=== PATIENT | male | born 1955 | race Caucasian/White ===

== ENCOUNTER 2023-12-04 14:59 | Outpatient (RCR) | payer MEDICARE, SELFPAY | END 2023-12-04 23:59 | disposition home or self-care (01) | LOC: RPT 14:59 | PROVIDERS: FAMILY PHYSICIAN Family Medicine | DX: Z47.89 Encounter for other orthopedic aftercare (principal); S86.011D Strain of right Achilles tendon, subsequent encounter; Z73.6 Limitation of activities due to disability; M62.81 Muscle weakness (generalized); R26.2 Difficulty in walking, not elsewhere classified | CPT/HCPCS: 97110; 97161 ==

== ENCOUNTER 2023-12-25 15:08 | Outpatient (RCR) | payer MEDICARE, SELFPAY | END 2023-12-25 23:59 | disposition home or self-care (01) | LOC: RPT 15:08 | PROVIDERS: FAMILY PHYSICIAN Family Medicine | DX: Z47.89 Encounter for other orthopedic aftercare (principal); S86.011D Strain of right Achilles tendon, subsequent encounter; Z73.6 Limitation of activities due to disability; M62.81 Muscle weakness (generalized); R26.2 Difficulty in walking, not elsewhere classified | CPT/HCPCS: 97110; 97112 ==

== ENCOUNTER → 2024-02-19 07:50 | Outpatient (REF) | payer OTHER, SELFPAY | LOC: WOUND 07:50 | PROVIDERS: ATTENDING PHYSICIAN Surgery; FAMILY PHYSICIAN Family Medicine | DX: L97.522 Non-pressure chronic ulcer of other part of left foot with fat layer exposed (principal); M21.611 Bunion of right foot; I10 Essential (primary) hypertension; F17.200 Nicotine dependence, unspecified, uncomplicated | CPT/HCPCS: 99204 ==

== ENCOUNTER → 2024-02-19 08:43 | Outpatient (REF) | payer OTHER, SELFPAY | LOC: RAD 08:43 | PROVIDERS: ATTENDING PHYSICIAN Physician Assistant Medical; FAMILY PHYSICIAN Family Medicine | DX: M79.672 Pain in left foot (principal) | CPT/HCPCS: 73630 ==

== ENCOUNTER → 2024-03-08 10:09 | Outpatient (REF) | payer OTHER, SELFPAY | LOC: WOUND 10:09 | PROVIDERS: ATTENDING PHYSICIAN Surgery; FAMILY PHYSICIAN Family Medicine | DX: L97.522 Non-pressure chronic ulcer of other part of left foot with fat layer exposed (principal) | CPT/HCPCS: 97597 ==